=== PATIENT | female | born 1995 | race Two or more races ===

== ENCOUNTER 2017-03-06 10:56 | Outpatient (CLI) | payer MEDICAID ==
[~2017-03-06] VITALS: Ht 147.3 cm; Wt 70.0 kg
[2017-03-06 11:04] VITALS: Ht 147.3 cm; Wt 70.0 kg
[2017-03-06 12:21] VITALS: BP 115/64; PULSE 18; RESP 18
--- NOTE | 2017-03-06 13:15 | RADRPT ---
PROCEDURE: US biophysical profile. CLINICAL INDICATION: Elevated liver enzymes. TECHNIQUE: Multiple sonographic images of the uterus were obtained. The images were revi ewed on a PACS workstation. COMPARISON: No prior studies are available for comparison. FINDINGS: There is a single live intrauterine gestation. heart rate is 152 beats per minute. The position is cephalic. The placenta is posterior fundal grade II with no abruption or previa. The PEYTON is 9.7 cm. (Normal = 5-20 cm.) Breathing Movement: 2 Gross Body Movement: 2 Tone: 2 Qualitative Amniotic Fluid Volume: 2 TOTAL: 8 IMPRESSION: 1. The biophysical score is 8/8. RPTAT: QQ .Minor Murcia MD, MD Date Time Electronically viewed and signed by .Minor Murcia MD, on 03/06/2017 13:15 .R/
[2017-03-06 14:21] LABS: ALBUMIN 3.7 g/dl (3.3-4.9); ALBUMIN/GLOBULIN RATIO 1.12; BILIRUBIN,INDIRECT 0.2 mg/dl (0-1.1); BILIRUBIN,TOTAL 0.2 mg/dl (0.2-1.3); CREATININE 0.5 mg/dl (0.44-1.00); POTASSIUM 4.2 mmol/L (3.5-5.1)
--- NOTE | 2017-03-06 15:51 | CONS ---
Date/Time of Note Date/Time of Note DATE: 03/06/17 TIME: 15:43 Consultation Date/Type/Reason Admit Date/Time March 06, 2017 OB triage consult Reason for Consultation This patient is a 21 years old 1 para 0 with estimated date of confinement of March 28, 2017 which makes her 36 weeks and 6 days now . she came to the clinic because of slightly elevated liver function test SGOT which was 62 and SGPT which was 149 the rest of tests were basically normal . On evaluating her she appears to be normal term patient in no acute distress Abdomen is soft chest is clear ear nose throat appear to be normal neck is normal no neck vein distention no thyromegaly no lymph node enlargement anywhere in the body chest is clear to auscultation her precaution no rales heart normal sinus rhythm no murmur breasts are soft free of masses.. Abdomen is soft fundus measures about 37 cm baby appears to be in vertex presentation heart tone is normal extremity is normal no edema no petechiae.. On examination of abdomen difficult to evaluate hepatomegaly due to size of the fundus Her general vital signs are normal with blood pressure 115/64, pulse rate 72, respiration 18, temperature 98.1 Constitutional: other, No chills, No diaphoresis, No disoriented, No febrile, No improved, No no complaints, No poor po, No requiring IVF, No requiring O2 Eyes: other (No evidence of jaundice) ENT: No bleeding, No congestion, No discharge, No dysphagia, No no complaints, No other, No pain, No sore throat Respiratory: No cough, No no complaints, No other, No pain, No pleuritic pain, No shortness of breath, No sputum, No wheezing Cardiovascular: No chest pain, No edema, No lightheadedness, No no complaints, No orthopenea, No other, No palpitations, No paroxysmal nocturnal dyspnea Gastrointestinal: No blood, No constipation, No decreased appetite, No diarrhea , No flatus, No nausea, No no complaints, No other, No pain, No passing stool, No vomiting Genitourinary: other (Due to lack of contraction pelvic exam was not performed) , No bleeding, No discharge, No dysuria, No flank pain, No hematuria, No no complaints Musculoskeletal: No back pain, No bone/joint pain, No neck pain, No no complaints, No other, No restricted range of motion, No swelling Skin: No bruising, No erythema, No laceration, No no complaints, No other, No pruritis, No rash, No skin lesions Neurologic: No confusion, No dizziness, No focal-weakness, No headache, No no complaints, No other, No seizure, No syncope Endocrine: other (Knee-jerk reflex are within normal), No dry skin, No no complaints, No polydypsia, No polyuria, No temp intolerance Lymphatic: No adenopathy, No lymphadema, No no complaints, No other, No tender nodes Additional Comments We repeated her blood tests for liver function the AST or SGOT was 67 ALT 140 amylase level was 71 which is within normal limits On ultrasound study a single live intrauterine gestation with heart rate 152 was reported in cephalic presentation ,placenta was fundal no evidence of abruption or previa , her PEYTON was reported 9.7 cm the biophysical profile score of 8/8 With these positive finding patient was discharged home to be followed in the clinic and to have repeated liver function tests in 1 week or sooner if any clinical symptoms To be referred to internal medicine if evidence of liver dysfunction End of dictation Social History Smoking Status: Never smoker Exam/Review of Systems Vital Signs Vitals Vital Signs Date Time Temp Pulse Resp B/P Pulse Ox O2 Delivery O2 Flow Rate FiO2 03/06/17 12:21 98.1 18 18 115/64 Room Air Results Result Diagram: 03/06/17 1345 Results 24 hrs Laboratory Tests Test 03/06/17 13:45 Sodium Level 139 Potassium Level 4.2 Chloride Level 112 H Carbon Dioxide Level 19 L Anion Gap 12 Blood Urea Nitrogen 8 Creatinine 0.50 Glucose Level 70 Calcium Level 9.0 Total Bilirubin 0.2 Direct Bilirubin 0.00 Indirect Bilirubin 0.2 Aspartate Amino Transf (AST/SGOT) 67 H Alanine Aminotransferase (ALT/SGPT) 140 H Alkaline Phosphatase 217 H Total Protein 7.0 Albumin 3.7 Globulin 3.30 H Albumin/Globulin Ratio 1.12 Amylase Level 71 TRUPTI PARRA MD Mar 06, 2017 15:51
[2017-03-06] MEDS ORDERED: PNV91TAB6 PO (15:58)
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
== END 2017-03-06 16:00 | disposition home or self-care (01) ==
LOC: OBT 10:56 → L-D 10:57 → OBT 16:00
PROVIDERS: ATTEND Obstetrics & Gynecology
DX: O26.893 Other specified pregnancy related conditions, third trimester (principal); R79.89 Other specified abnormal findings of blood chemistry; Z3A.36 36 weeks gestation of pregnancy
CPT/HCPCS: 76818; 80053; 82150; Z7500; G0463

== ENCOUNTER 2017-03-31 07:28 | Inpatient (IN) | payer MEDICAID ==
[~2017-03-31] VITALS: Ht 147.3 cm; Wt 71.0 kg
[~2017-03-31 07:28] MED LIST: PNV91TAB6 PO
[2017-03-31 07:41] VITALS: BP 114/67; PULSE 107; RESP 20
[2017-03-31 07:42] VITALS: Ht 147.3 cm; Wt 71.0 kg
--- NOTE | 2017-03-31 08:22 | TRIAGE ---
OB Triage Datetime Report Generated by CPN: 03/31/2017 08:22 Datetime: 03/31/2017 07:57 Assessment Type: Triage Maternal Assessment Level of Consciousness: Fully Conscious DTR's/Clonus: DTRs 2+; No Clonus Headache: Denies Blurred Vision: No Respiratory Effort: Unlabored; Regular Rhythm; Equal Expansion Breath Sounds, Left: Clear and Equal Breath Sounds, Right: Clear and Equal Nausea/Vomiting: Denies RUQ Epigastric Pain: Denies Lower Extremities Edema: None Upper Extremities Edema: None Facial Edema: None Fall Risk Assessment History of Falling: (0) No Secondary Diagnosis: (0) No Ambulatory Aid: (0) Bedrest/Nurse Assist IV Therapy: (0) No Gait: (0) Normal/Bedrest/Immobile Mental Status: (0) Oriented to Own Ability Fall Score: 0 Fall Risk Score Definition: No Risk: No action required Datetime: 03/31/2017 07:53 Labor Evaluation Frequency: 5-8 Monitor Mode: External Duration (sec)2399: 70-80 Quality: Mild Resting Tone [place]: Relaxed Heart Rate FHR Baseline Rate: 135 Monitor Mode: External US FHR Baseline Changes: No Baseline Change Variability: Moderate 6-25 bpm Accelerations: 10X10 Decelerations: None Category: Category I Pain Assessment Pain Scale: 4 Pain Presence: Intermittent Pain Type: Contraction Pain Location: Abdomen Pain Goal: 4 Vaginal Exam Dilatation (cms): 0.0 Effacement (%): 0 Station: -3 Exam By: LR RN Vaginal Bleeding: None Cervix, Consistency: Moderate Cervix, Position: Posterior Datetime: 03/31/2017 07:20 Time of Arrival: 03/31/2017 07:20 EGA: 40.3 Arrived By: Wheelchair Arrived From: Home Chief Complaint: UC'S SINCE 429 Movement: Present Contractions: Regular Contractions: 5-8 Rupture of Membranes: Denies Vaginal Bleeding: None Vaginal Discharge: Present Abdominal Trauma: Not Applicable Patient Complaints: Contractions Time Provider Notified: 03/31/2017 08:00 Provider Notified: AIDA Initial Plan: CALL MD Datetime: 03/06/2017 11:08 Fall Score: 0 Fall Risk Score Definition: No Risk: No action required Datetime: 03/06/2017 11:06 EGA: 36.6 Initial Plan: TOCO/ US, LIVER ENZYMES ELEVATED ON 02/26/17 FROM CLINIC- ALK PHOSPHATASE-203, ALT-149 , AST- 62. BPP-8/8, PEYTON-9.7. LIVER PANEL, AMYLASE, BPP
[2017-03-31] MEDS ORDERED: CARBOPROST 250 MCG INJ IM PRN (08:30)
[2017-03-31] MEDS ORDERED: OXYTOCIN 30 UNITS/LR 500 ML IV SCH ×2 (08:30)
[2017-03-31] MEDS ORDERED: METHYLERGONOVINE 0.2 MG INJ IM PRN (08:30)
[2017-03-31] MEDS ORDERED: BUTORPHANOL 2 MG INJ IV PRN ×2 (08:30)
[2017-03-31] MEDS ORDERED: DINOPROSTONE 10 MG VAG SUPP VAG ONE (08:30)
[2017-03-31] MEDS ORDERED: MISOPROSTOL 200 MCG TAB PR PRN (08:30)
[2017-03-31] MEDS ORDERED: LIDOCAINE 1% (MPF) 30 ML INJ INJ PRN (08:30)
[2017-03-31] MEDS ORDERED: OXYTOCIN 30 UNITS/LR 500 ML IV PRN (08:30)
[2017-03-31] MEDS ORDERED: IBUPROFEN 600 MG TAB PO PRN (08:30)
[2017-03-31] MEDS ORDERED: LACTATED RINGER'S 1,000 ML IV PRN (09:00)
[2017-03-31] MEDS: LACTATED RINGER'S 1,000 ML IV SCH ×3 (09:15→22:25)
[2017-03-31 09:41] LABS: ADD SCAN DIFF NO
[2017-03-31 09:47] LABS: BASOPHILS % 0.3 % (0.0-2.0); EOSINOPHILS # 0.1 10^3/ul (0.0-0.5); EOSINOPHILS % 0.5 % (0.0-7.0); HEMATOCRIT 32.6 % (37.0-47.0); HEMOGLOBIN 10.2 g/dl (12.0-16.0); LYMPHOCYTES # 1.9 10^3/ul (0.8-2.9); LYMPHOCYTES % 19.6 % (15.0-51.0); MEAN CORPUSCULAR HEMOGLOBIN 25.7 pg (29.0-33.0); MEAN CORPUSCULAR HGB CONC 31.3 g/dl (32.0-37.0); MEAN CORPUSCULAR VOLUME 82.1 fl (82.0-101.0); MEAN PLATELET VOLUME 12.1 fl (7.4-10.4); MONOCYTE # 0.6 10^3/ul (0.3-0.9); MONOCYTES % 6.7 % (0.0-11.0); NEUTROPHIL # 6.8 10^3/ul (1.6-7.5); NEUTROPHILS % 71.3 % (39.0-77.0); NUCLEATED RED BLOOD CELLS% 0.2 /100WBC (0.0-0.0); PLATELET COUNT 246 10^3/UL (140-415); RED BLOOD COUNT 3.97 10^6/ul (4.20-5.40); RED CELL DISTRIBUTION WIDTH 14.9 % (11.5-14.5); WHITE BLOOD COUNT 9.5 10^3/ul (4.8-10.8)
[2017-03-31 10:17] LABS: INR 0.91; PARTIAL THROMBOPLASTIN TIME 28.2 Sec (25.0-35.0); PROTIME 12.3 Sec (12.2-14.2)
--- NOTE | 2017-03-31 13:39 | HP ---
Date/Time of Note Date/Time of Note DATE: 03/31/17 TIME: 13:32 OB - History Hx of Present Free Text/Dictation This patient is a 21 years old 1 para 0 with estimated date of confinement of March 28, 2017 which makes her 40 weeks and 3 days. She came in was admitted in the hospital in early labor Laboratory Tests Test 03/31/17 08:40 White Blood Count 9.510^3/ul Red Blood Count 3.9710^6/ul Hemoglobin 10.2g/dl Hematocrit 32.6% Mean Corpuscular Volume 82.1fl Mean Corpuscular Hemoglobin 25.7pg Mean Corpuscular Hemoglobin Concent 31.3g/dl Red Cell Distribution Width 14.9% Platelet Count 11397^3/UL Mean Platelet Volume 12.1fl Neutrophils % 71.3% Lymphocytes % 19.6% Monocytes % 6.7% Eosinophils % 0.5% Basophils % 0.3% Nucleated Red Blood Cells % 0.2/100WBC Neutrophils # 6.810^3/ul Lymphocytes # 1.910^3/ul Monocytes # 0.610^3/ul Eosinophils # 0.110^3/ul Basophils # 0.010^3/ul Nucleated Red Blood Cells # 0.010^3/ul Prothrombin Time 12.3Sec Prothrombin Time Ratio 1.0 INR International Normalized Ratio 0.91 Activated Partial Thromboplast Time 28.2Sec Current Medications Medications (Trade) Dose Ordered Sig/Betzaida Route PRN Reason Start Time Stop Time Status Last Admin Dose Admin Lactated Ringer's (Lr) 1,000 ml @ 125 mls/hr Q8H IV 03/31/17 08:10 03/31/17 09:15 Dinoprostone (Cervidil Vaginal Supp) 10 mg ONCE ONCE VAG 03/31/17 08:30 03/31/17 08:31 DC 03/31/17 09:24 Butorphanol Tartrate (Stadol) 1 mg Q2H PRN IV PAIN 03/31/17 08:30 Butorphanol Tartrate (Stadol) 2 mg Q2H PRN IV PAIN 03/31/17 08:30 Lidocaine 30 ml 30 ml ONCE PRN INJ EPISIOTOMY/TEARING 03/31/17 08:30 Oxytocin/Lactated Ringer's 500 ml @ 125 mls/hr ONCE -MAY REPEAT X1 IV 03/31/17 08:30 Oxytocin/Lactated Ringer's 500 ml @ 125 mls/hr ONCE IV 03/31/17 08:30 Ibuprofen 600 mg 600 mg ONCE PRN PO Mild Pain (Pain Score 1-3) 03/31/17 08:30 Lactated Ringer's 1,000 ml @ 2,000 mls/hr Q30M PRN IV PRE-EPIDURAL BOLUS 03/31/17 09:00 Oxytocin/Lactated Ringer's 500 ml @ 0 mls/hr ONCE PRN IV For Hemorrhage Management 03/31/17 08:30 Methylergonovine Maleate (Methergine) 0.2 mg ONCE PRN IM VAGINAL BLEEDING 03/31/17 08:30 Carboprost Tromethamine (Hemabate) 250 mcg ONCE PRN IM VAGINAL BLEEDING 03/31/17 08:30 Misoprostol (Cytotec) 1,000 mcg ONCE PRN [place] VAGINAL BLEEDING 03/31/17 08:30 Chief Complaint: postterm in labor Care: Good Care Other Concerns: On examination she is a well-developed well-nourished lady at term her general vital signs are normal blood pressure 114/67 pulse rate 107.. Respiration 20. Temperature 98.3 heart tone was normal at 1 35 bpm On pelvic examination her cervix was closed -3 station about 50% effaced. Membranes were intact. Urine this course and lab works were basically normal blood type O Rh hepatitis B surface antigen and HIV RPR GBS chlamydia and gonorrhea were all negative or nonreactive Past Family/Social History * Past Medical, Surgical, Family and Obstetric Histories reviewed from chart. She is admitted in the labor delivery room and will be induced with Cervidil OB Admission Exam Vital Signs Vital Signs Vital Signs Date Time Temp Pulse Resp B/P Pulse Ox O2 Delivery O2 Flow Rate FiO2 03/31/17 07:41 98.3 107 20 114/67 98 Room Air Last 72 hours Lab Results CBC & BMP 03/31/17 08:40 TRUPTI PARRA MD Mar 31, 2017 13:38
[2017-04-01] MEDS: LACTATED RINGER'S 1,000 ML IV SCH ×3 (02:51→20:06)
[2017-04-01] MEDS ORDERED: FENTAnyl 2MCG/ML-ROPIV 0.2% 100 ML ONE (02:53)
[2017-04-01] MEDS ORDERED: ONDANSETRON 4 MG INJ IV PRN (08:30)
[2017-04-01] MEDS ORDERED: DIPHENHYDRAMINE 50 MG INJ IV PRN (08:30)
[2017-04-01] MEDS ORDERED: NALOXONE (0.4 MG/ML) INJ IV PRN (08:30)
[2017-04-01] MEDS: FENTAnyl 2MCG/ML-ROPIV 0.2% 100 ML BAG EPI SCH ×2 (11:54→20:14)
[2017-04-01] MEDS ORDERED: AMPICILLIN 2 GM/NS (PMX) 100 ML IVPB ONE (15:30)
[2017-04-01] MEDS: AMPICILLIN 1 GM/NS (PMX) 50 ML IVPB SCH ×2 (18:59→21:00)
[2017-04-01] MEDS ORDERED: ACETAMINOPHEN 500 MG TAB PO PRN (20:00)
--- NOTE | 2017-04-01 21:50 | LDN ---
Date/Time of Note Date/Time of Note DATE: 04/01/17 TIME: 21:27 Delivery Summary Normal spontaneous vaginal delivery of a baby girl from OA position shoulders delivered without any difficulty rest of the baby's body followed cord was meconium stain clamped after stopped pulsation placenta spontaneous expulsion meconium stain sent to the pathology patient received 20 units of Pitocin through the IV infusion patient sustained first-degree perineal laceration which repaired with 3-0 chromic catgut estimated blood loss 250 cc Weeks of Gestation 40 weeks 12/29 Placenta Delivered: Spontaneously Meconium: Thick Episiotomy: No Perineal laceration: 1 Laceration repair: First-degree perineal laceration repaired with 2-0 chromic catgut Anesthesia type: Epidural Estimated blood loss: 250 Sponge & Needle done & correct: Yes All needle counts correct: Yes Any foreign bodies felt in the: No Problems: Delivery Information Sex Sex: female Apgars 1 Minute: 7 5 Minute: 9 Suctioning Nose & mouth suctioned at jess: Yes Delee suction performed: No Umbilical Cord Umbilical cord with: 3 Vessels Cord presentations: nuchal cord Nuchal cord present X: 1 Cord Blood was obtained: Yes GIGI KAT MD Apr 01, 2017 21:37
[2017-04-01 23:45] VITALS: BP 140/80; PULSE 87; RESP 18
[2017-04-02] MEDS ORDERED: ONDANSETRON 4 MG INJ IV PRN (00:30)
[2017-04-02] MEDS ORDERED: BENZOCAINE 20% 56 ML SPRAY TOP PRN (00:30)
[2017-04-02] MEDS: IBUPROFEN 600 MG TAB PO SCH ×5 (00:30→23:59)
[2017-04-02] MEDS ORDERED: DIBUCAINE 1% 30 GM OINT PR PRN (00:30)
[2017-04-02] MEDS ORDERED: OXYCODONE/ASPIRIN (4.88/325) TAB PO PRN ×2 (00:30)
[2017-04-02] MEDS ORDERED: WITCH HAZEL/GLYCERIN PAD PR PRN (00:30)
[2017-04-02] MEDS ORDERED: LANOLIN 7 GM TUBE TOP PRN (00:30)
[2017-04-02] MEDS ORDERED: ACETAMINOPHEN/CODEINE #3 TAB PO PRN ×2 (00:30)
[2017-04-02] MEDS ORDERED: ACETAMINOPHEN 325 MG TAB PO PRN (00:30)
[2017-04-02] MEDS: OXYTOCIN 30 UNITS/LR 500 ML IV SCH ×2 (01:12→06:59)
[2017-04-02 04:00] VITALS: BP 107/64; RESP 18
[2017-04-02 08:22] LABS: ADD SCAN DIFF NO
[2017-04-02 08:44] LABS: ABNORMAL IP MESSAGE 1; BASOPHILS % 0.2 % (0.0-2.0); EOSINOPHILS % 0.1 % (0.0-7.0); HEMATOCRIT 28.7 % (37.0-47.0); LYMPHOCYTES # 2.4 10^3/ul (0.8-2.9); LYMPHOCYTES % 10.3 % (15.0-51.0); MEAN CORPUSCULAR HEMOGLOBIN 25.7 pg (29.0-33.0); MEAN CORPUSCULAR HGB CONC 31.4 g/dl (32.0-37.0); MEAN PLATELET VOLUME 12.1 fl (7.4-10.4); MONOCYTE # 1.5 10^3/ul (0.3-0.9); MONOCYTES % 6.6 % (0.0-11.0); NEUTROPHIL # 18.9 10^3/ul (1.6-7.5); NEUTROPHILS % 81.8 % (39.0-77.0); PLATELET COUNT 170 10^3/UL (140-415); RED CELL DISTRIBUTION WIDTH 15.3 % (11.5-14.5); WHITE BLOOD COUNT 23.1 10^3/ul (4.8-10.8)
[2017-04-02 08:45] VITALS: BP 107/64; PULSE 72; RESP 20
--- NOTE | 2017-04-02 09:58 | PN ---
Date/Time of Note Date/Time of Note DATE: 04/02/17 TIME: 09:56 OB Subjective Subjective Subjective Post normal vaginal delivery day 1 Afebrile vital signs stable abdomen soft uterus firm lochia normal extremity normal ambulation recommended Laboratory Tests Test 04/02/17 07:47 White Blood Count 23.110^3/ul Red Blood Count 3.5010^6/ul Hemoglobin 9.0g/dl Hematocrit 28.7% Mean Corpuscular Volume 82.0fl Mean Corpuscular Hemoglobin 25.7pg Mean Corpuscular Hemoglobin Concent 31.4g/dl Red Cell Distribution Width 15.3% Platelet Count 59994^3/UL Mean Platelet Volume 12.1fl Neutrophils % 81.8% Lymphocytes % 10.3% Monocytes % 6.6% Eosinophils % 0.1% Basophils % 0.2% Nucleated Red Blood Cells % 0.0/100WBC Neutrophils # 18.910^3/ul Lymphocytes # 2.410^3/ul Monocytes # 1.510^3/ul Eosinophils # 0.010^3/ul Basophils # 0.010^3/ul Nucleated Red Blood Cells # 0.010^3/ul Current Medications Medications (Trade) Dose Ordered Sig/Betzaida Route PRN Reason Start Time Stop Time Status Last Admin Dose Admin Lactated Ringer's (Lr) 1,000 ml @ 125 mls/hr Q8H IV 03/31/17 08:10 04/02/17 00:07 DC 04/01/17 20:06 Dinoprostone (Cervidil Vaginal Supp) 10 mg ONCE ONCE VAG 03/31/17 08:30 03/31/17 08:31 DC 03/31/17 09:24 Butorphanol Tartrate (Stadol) 1 mg Q2H PRN IV PAIN 03/31/17 08:30 04/02/17 00:07 DC Butorphanol Tartrate (Stadol) 2 mg Q2H PRN IV PAIN 03/31/17 08:30 04/02/17 00:07 DC 03/31/17 22:26 Lidocaine 30 ml 30 ml ONCE PRN INJ EPISIOTOMY/TEARING 03/31/17 08:30 04/02/17 00:07 DC Oxytocin/Lactated Ringer's 500 ml @ 125 mls/hr ONCE -MAY REPEAT X1 IV 03/31/17 08:30 04/02/17 00:07 DC 04/01/17 21:36 Oxytocin/Lactated Ringer's 500 ml @ 125 mls/hr ONCE IV 03/31/17 08:30 04/02/17 00:07 DC Ibuprofen 600 mg 600 mg ONCE PRN PO Mild Pain (Pain Score 1-3) 03/31/17 08:30 04/02/17 00:07 DC 04/01/17 22:16 Lactated Ringer's 1,000 ml @ 2,000 mls/hr Q30M PRN IV PRE-EPIDURAL BOLUS 03/31/17 09:00 04/02/17 00:06 DC 04/01/17 11:59 Oxytocin/Lactated Ringer's 500 ml @ 0 mls/hr ONCE PRN IV For Hemorrhage Management 03/31/17 08:30 04/02/17 00:06 DC 04/01/17 10:04 Methylergonovine Maleate (Methergine) 0.2 mg ONCE PRN IM VAGINAL BLEEDING 03/31/17 08:30 04/02/17 00:07 DC Carboprost Tromethamine (Hemabate) 250 mcg ONCE PRN IM VAGINAL BLEEDING 03/31/17 08:30 04/02/17 00:07 DC Misoprostol 1000 mcg 1,000 mcg ONCE PRN [place] VAGINAL BLEEDING 03/31/17 08:30 04/02/17 00:08 DC Fentanyl/ Ropivacaine 100 ml @ ud STK-MED ONCE .ROUTE 04/01/17 02:53 04/01/17 02:54 DC Naloxone HCl (Narcan) 0.1 mg Q2M PRN IV FOR RESP RATE 8 OR LESS 04/01/17 08:30 04/02/17 00:06 DC Diphenhydramine HCl (Benadryl) 25 mg Q6H PRN IV ITCHING 04/01/17 08:30 04/02/17 00:08 DC Ondansetron HCl (Zofran Inj) 4 mg Q6H PRN IV NAUSEA AND/OR VOMITING 04/01/17 08:30 04/02/17 00:08 DC Fentanyl/ Ropivacaine 100 ml 100 ml EPIDURAL INFUSION EPI 04/01/17 08:30 04/02/17 00:08 DC 04/01/17 20:14 Ampicillin 100 ml @ 100 mls/hr ONCE ONCE IVPB 04/01/17 15:30 04/01/17 16:29 DC 04/01/17 15:28 Ampicillin (Ampicillin 1 Gm/ NS (Pmx)) 50 ml @ 100 mls/hr Q4 IVPB 04/01/17 19:00 04/02/17 00:06 DC 04/01/17 18:59 Acetaminophen 500 mg 500 mg Q3 PRN PO PAIN AND OR ELEVATED TEMP 04/01/17 20:00 04/02/17 00:06 DC 04/01/17 20:26 Oxytocin/Lactated Ringer's 500 ml @ 125 mls/hr Q4H IV 04/02/17 00:04 04/02/17 08:03 DC 04/02/17 06:59 Ibuprofen (Motrin) 600 mg Q6 PO 04/02/17 00:30 04/02/17 05:45 Acetaminophen (Tylenol Tab) 650 mg Q4H PRN PO PAIN LEVEL 1-5 04/02/17 00:30 Acetaminophen/ Codeine Phosphate (Tylenol No.3) 1 tab Q4H PRN PO PAIN LEVEL 1-5 04/02/17 00:30 Acetaminophen/ Codeine Phosphate (Tylenol No.3) 2 tab Q4H PRN PO PAIN LEVEL 6-10 04/02/17 00:30 Oxycodone/Aspirin (Percodan) 1 tab Q3H PRN PO PAIN LEVEL 1-5 04/02/17 00:30 Oxycodone/Aspirin (Percodan) 2 tab Q3H PRN PO PAIN LEVEL 6-10 04/02/17 00:30 Ondansetron HCl (Zofran Inj) 4 mg Q6H PRN IV NAUSEA AND/OR VOMITING 04/02/17 00:30 Senna/Docusate Sodium (Senokot-S) 1 tab BID PO 04/02/17 09:00 Witch [place]/ Glycerin (Tucks Pads) 1 pad BEDSIDE MEDICATION PRN [place] HEMORRHOID/EPISIOTMY PAIN 04/02/17 00:30 04/02/17 01:09 Benzocaine (Dermoplast [place]) 1 spray BEDSIDE MEDICATION PRN TOP HEMORRHOID/EPISIOTMY PAIN 04/02/17 00:30 04/02/17 01:10 Dibucaine (Nupercainal) 1 applic BEDSIDE MEDICATION PRN [place] HEMORRHOID/EPISIOTMY PAIN 04/02/17 00:30 Lanolin ([id number]) 1 applic BEDSIDE MEDICATION PRN TOP BEDSIDE FOR FER TO NIPPLES 04/02/17 00:30 04/02/17 01:10 Measles/Mumps/ Rubella Vaccine Live (Mmr Ii Vaccine) 0.5 ml ONCE ONCE SC* 04/03/17 09:00 04/03/17 09:01 GIGI KAT MD Apr 02, 2017 09:58
[2017-04-02] MEDS: SENNA/DOCUSATE NA (8.6MG/50MG) TAB PO SCH ×2 (11:18→20:47)
[2017-04-02 12:00] VITALS: BP 106/62; PULSE 92; RESP 20
[2017-04-02] MEDS: LACTATED RINGER'S 1,000 ML IV SCH (14:22)
[2017-04-02] MEDS: CEFAZOLIN 2 GM/50 ML (PMX) 50 ML IVPB SCH ×2 (14:22→22:05)
[2017-04-02 15:45] VITALS: BP 98/57; PULSE 71; RESP 18
[2017-04-02 19:50] VITALS: BP 100/59; PULSE 69; RESP 18
[2017-04-03] MEDS: LACTATED RINGER'S 1,000 ML IV SCH ×2 (02:45→06:30)
[2017-04-03 04:00] VITALS: BP 101/78; PULSE 78; RESP 18
[2017-04-03] MEDS: IBUPROFEN 600 MG TAB PO SCH ×2 (05:59→11:22)
[2017-04-03] MEDS: CEFAZOLIN 2 GM/50 ML (PMX) 50 ML IVPB SCH ×2 (05:59→14:00)
[2017-04-03 07:05] LABS: ADD SCAN DIFF NO
[2017-04-03 07:07] LABS: BASOPHILS % 0.3 % (0.0-2.0); EOSINOPHILS # 0.1 10^3/ul (0.0-0.5); EOSINOPHILS % 0.9 % (0.0-7.0); HEMATOCRIT 27.3 % (37.0-47.0); HEMOGLOBIN 8.2 g/dl (12.0-16.0); LYMPHOCYTES # 2.3 10^3/ul (0.8-2.9); LYMPHOCYTES % 16.2 % (15.0-51.0); MEAN CORPUSCULAR VOLUME 83.2 fl (82.0-101.0); MEAN PLATELET VOLUME 11.8 fl (7.4-10.4); MONOCYTE # 0.6 10^3/ul (0.3-0.9); MONOCYTES % 4.5 % (0.0-11.0); NEUTROPHIL # 10.7 10^3/ul (1.6-7.5); NEUTROPHILS % 76.7 % (39.0-77.0); PLATELET COUNT 157 10^3/UL (140-415); RED BLOOD COUNT 3.28 10^6/ul (4.20-5.40); RED CELL DISTRIBUTION WIDTH 15.3 % (11.5-14.5); WHITE BLOOD COUNT 13.9 10^3/ul (4.8-10.8)
[2017-04-03 08:50] VITALS: BP 106/64; PULSE 68; RESP 18
[2017-04-03] MEDS ORDERED: MEASLES,MUMPS,RUBELLA VACCINE INJ SC* ONE (09:00)
[2017-04-03] MEDS: SENNA/DOCUSATE NA (8.6MG/50MG) TAB PO SCH (09:54)
[2017-04-03 11:39] VITALS: BP 112/62; PULSE 75; RESP 20
--- NOTE | 2017-04-03 13:57 | PD.PPDC ---
SCIENCE INTERPRETER Discharge Instruction Provider Information Physician Information day 2 normal spontaneous delivery instructions given for recommended to make appointment to be seen at the clinic in 2 weeks Condition Patient Condition: Good Diet Diet: Resume Regular Diet Activity/Restrictions Restrictions: No Exercising No Lifting No Driving No Sexual Activity Nothing in the Vagina No [place] No Tampons, douche Follow-up Follow-up with Physician: 2, Week/Weeks Return to clinic for CONSTRUCTION SUPERINTENDENT Instructions: Fever greater than 101 Chills Worsening abdominal pain Excessive Vaginal Bleeding More than 2 pads per hour Unable to tolerate diet OB Instructions: Breast Tenderness Depression Blurried Vision Headache Surgical Instructions: Incisional Drainage Incisional Redness GIGI KAT MD Apr 03, 2017 13:57
--- NOTE | 2017-04-03 14:01 | DS ---
Date/Time of Note Date/Time of Note DATE: 04/03/17 TIME: 13:58 Discharge Summary Admission/Discharge Info Admit Date/Time Mar 31, 2017 at 08:10 Discharge Date/Time April 03, 2017 at 1355 Discharge Diagnosis Post normal vaginal delivery Patient Condition: Good Procedures Normal vaginal delivery Hx of Present Illness Term in labor Hospital Course Satisfactory uneventful Home Meds Reported Medications Pnv95/Ferrous Fumarate/FA ( Vitamin Tablet) 1 Each Tablet, 1 EACH PO, TAB 03/06/17 Follow-up Plan instructions given recommended to make appointment to be seen in the clinic in 2 weeks Primary Care Provider Care Physician No Primary Time spent on discharge: < 30 minutes Pending Labs Laboratory Tests Test 04/03/17 06:25 04/03/17 06:38 White Blood Count 13.910^3/ul (4.8-10.8) Red Blood Count 3.2810^6/ul (4.20-5.40) Hemoglobin 8.2g/dl (12.0-16.0) Hematocrit 27.3% (37.0-47.0) Mean Corpuscular Volume 83.2fl (82.0-101.0) Mean Corpuscular Hemoglobin 25.0pg (29.0-33.0) Mean Corpuscular Hemoglobin Concent 30.0g/dl (32.0-37.0) Red Cell Distribution Width 15.3% (11.5-14.5) Platelet Count 93154^3/UL (140-415) Mean Platelet Volume 11.8fl (7.4-10.4) Neutrophils % 76.7% (39.0-77.0) Lymphocytes % 16.2% (15.0-51.0) Monocytes % 4.5% (0.0-11.0) Eosinophils % 0.9% (0.0-7.0) Basophils % 0.3% (0.0-2.0) Nucleated Red Blood Cells % 0.0/100WBC (0.0-0.0) Neutrophils # 10.710^3/ul (1.6-7.5) Lymphocytes # 2.310^3/ul (0.8-2.9) Monocytes # 0.610^3/ul (0.3-0.9) Eosinophils # 0.110^3/ul (0.0-0.5) Basophils # 0.010^3/ul (0.0-0.1) Nucleated Red Blood Cells # 0.010^3/ul (0.0-0.0) Hepatitis B Surface Antigen NEGATIVE (NEGATIVE) GIGI KAT MD Apr 03, 2017 14:00
== END 2017-04-03 15:15 | disposition home or self-care (01) | DRG 775 ==
LOC: OBT 07:28 → L-D 07:28 → OBT 08:05 → L-D 08:10 → PP1 04-01 23:46
PROVIDERS: ADMIT Obstetrics & Gynecology; ATTEND Obstetrics & Gynecology
PROC: 10E0XZZ Delivery of Products of Conception, External Approach (ICD-10-PCS; principal; 2017-04-01)
PROC: 0HQ9XZZ Repair Perineum Skin, External Approach (ICD-10-PCS; 2017-04-01)
PROC: 4A1HX4Z Monitoring of Products of Conception, Cardiac Electrical Activity, External Approach (ICD-10-PCS; 2017-04-01)
DX: O48.0 Post-term pregnancy (principal); O77.0 Labor and delivery complicated by meconium in amniotic fluid; O70.0 First degree perineal laceration during delivery; O69.1XX0 Labor and delivery complicated by cord around neck, with compression, not applicable or unspecified; Z3A.40 40 weeks gestation of pregnancy; Z37.0 Single live birth
CPT/HCPCS: 62319; 85025; 85610; 85730; 86592; 86900; 86901; 87340; 88307; 99464; A4310; G0463; J0290; J0595; J0690; J2590; J3010; J7120